=== PATIENT | female | born 1960 | race Caucasian/White ===

== ENCOUNTER → 2022-09-10 | Outpatient (CLI) | payer MEDICARE, MEDICAID ==
[~2022-09-10] MED LIST: CARDIZEM CD 24240 MG PO; EFFEXOR 50M50 MG/TAB PO; PERCOCET 325 MG1 TA2 PO; PHENERGAN 25 TA25 MG PO; ULTRAM 50MG TAB50 MG PO; ZITHROMAX Z PA250 MG PO
== END ==
LOC: COL.RAD 09-04 08:30
DX: N30.90 Cystitis, unspecified without hematuria (principal); K81.9 Cholecystitis, unspecified; Q64.4 Malformation of urachus
CPT/HCPCS: Q9967

== ENCOUNTER → 2023-02-10 | Outpatient (CLI) | payer MEDICARE, MEDICAID | LOC: CANPRECLI → MC.RAD 02-09 11:45 | DX: Z12.31 Encounter for screening mammogram for malignant neoplasm of breast (principal) ==

== ENCOUNTER 2023-09-03 08:53 | Outpatient (CLI) | payer MEDICARE, MEDICAID ==
[~2023-09-03] VITALS: Ht 175.3 cm; Wt 100.8 kg
[2023-09-03 09:00] VITALS: BP 171/74; PULSE 74; TEMP 98.3
[2023-09-03] MEDS ORDERED: ASPIRIN 81M81 MG/TA2 PO (09:07)
[2023-09-03] MEDS ORDERED: BENADRYL25 M2 PO (09:07)
[2023-09-03] MEDS ORDERED: IBU800 M1 PO (09:09)
--- NOTE | 2023-09-03 09:53 | NUR ---
PT TOLERATED BLADDER SCAN WELL. VS REMAINED WITHIN NORMAL LIMITS. DR. ROSARIO GAVE ORDERS TO DISCHARGE PT AFTER POST VOID BLADDER SCAN WAS COMPLETED.
== END 2023-09-03 09:54 | disposition home or self-care (01) ==
LOC: EUO 08:53
DX: N32.89 Other specified disorders of bladder (principal)